=== PATIENT | male | born 1975 | race Caucasian/White ===

== ENCOUNTER 2016-08-18 05:57 | Emergency (ER) | payer OTHER ==
[2016-08-18 06:05] VITALS: BP 152/112; BMI 28.7
--- NOTE | 2016-08-18 06:47 | DR.GENAD ---
HPI - PCP Primary Care Physician: katie - HPI Comment HPI Comment: Patient reports that he was tested positive for the flu and has been prescribed medication but feeling w/o energy body ache - Complaint/Symptoms Chief Complaint Doctors Comments: I tested positive for the flu Chief Complaint:: pt states" i got the flu i tested positive last thursday i don't have any energy" - Nurses notes reviewed Nurses Notes Review: Yes - Source History Provided: Patient - Mode of Arrival Mode of Arrival: Ambulatory - Timing Onset of Chief Complaint: 08/13/16 PMH - PMH Past Medical History: Yes Past Medical History: Hypertension Past Surgical History: No - Family History History of Family Medical Conditions: No - Social History Type of Tobacco Use: Cigarettes Does any household member use tobacco: No Alcohol Use: Occasionally Do you use any recreational Drugs:: No Lives With: Family Lives Where: Home - infectious screening In the last 2 months have you had wt loss of >10#?: NO Have you had fever, night sweats or hemotysis?: No Have you traveled outside the country in the last 6 months?: No Isolation: Standard ROS - Review of Systems Constitutional: Malaise Eyes: No Symptoms Reported ENTM: No Symptoms Reported Respiratoy: No Symptoms Reported Cardiovascular: No Symptoms Reported Gastrointestinal/Abdominal: No Symptoms Reported Genitourinary: No Symptoms Reported Neurological: No Symptoms Reported Musculoskeletal: No Symptoms Reported Integumentary: No Symptoms Reported Hematologic/Lymphatic: No Symptoms Reported Endocrine: No Symptoms Reported Psychiatric: No Symptoms Reported All Other Systems: Reviewed and Negative PE - Vital Signs Vitals: Temperature 98.8 F Pulse Rate 100 Respiratory Rate 18 Blood Pressure 152/112 O2 Sat by Pulse Oximetry 100 - General Limitations: No Limitations General Appearance: Alert, In No Apparent Distress - Head Head Exam: Normal Inspection - Eyes Eye exam: Normal Appearance, PERRL, EOMI - ENT ENT Exam: Other (oropharynx red) External Ear Exam: Normal External Inspection TM/Canal Exam: Bilateral Normal Nose Exam: Normal Nose Exam Mouth Exam: Normal Inspection Throat Exam: Tonsillar Erythema - Neck Neck Exam: Normal Inspection - Chest Chest Inspection: Normal Inspection - Respiratory Respiratory Exam: Normal Lung Sounds Bilat Respiratory Exam: Bilateral Clear to Auscultation - Cardiovascular Cardiovascular Exam: Regular Rate, Normal Rhythm - Abdominal Exam Abdominal Exam: Normal Inspection, Normal Bowel Sounds, Soft - Extremities Extremities Exam: Normal Inspection - Back Back Exam: Normal Inspection - Neurologic Neurological Exam: Alert, Oriented X3 - Psychiatric Psychiatric Exam: Normal Affect, Normal Mood - Skin Skin Exam: Warm, Dry, Intact, Normal Color Course - Reevaluation 1st: Improved - Education/Counseling Education/Counseling: Patient Educated On: Treatment, Diagnosis, Needs for Follow Up - Diagnosis Discharge Problem: Influenza, Body aches, Acute upper respiratory infection Fever Qualifiers: Fever type: unspecified Qualified Code(s): R50.9 - Fever, unspecified Fever Qualifiers: Fever type: unspecified Qualified Code(s): R50.9 - Fever, unspecified - Discharge Plan Condition: Stable Prescriptions: Amoxicillin & Pot Clavulanate [Augmentin 500-125 mg] 1 tab PO Q12H #20 tab - Follow ups/Referrals Follow ups/Referrals: ELISA [facility] [Primary Care Provider] - 3 days - Instructions Instructions: Influenza, Adult, [id number], Upper Respiratory Infection, Adult, [id number] Additional Instructions: Continue supportive measures Increase fluid intake Fever control with tylenol/ motrin
[2016-08-18] MEDS ORDERED: TORADOL 60 MG VIAL IM ONE (06:54)
[2016-08-18] MEDS ORDERED: TORADOL 30 MG VIAL IVP ONE (06:59)
[2016-08-18] MEDS ORDERED: TORADOL 60 MG VIAL ONE (06:59)
== END 2016-08-18 07:40 | disposition home or self-care (01) ==
LOC: ER 05:57
DX: J10.1 Influenza due to other identified influenza virus with other respiratory manifestations (principal); J06.9 Acute upper respiratory infection, unspecified; R52 Pain, unspecified; R50.9 Fever, unspecified
CPT/HCPCS: 96372; 99281; 99282; J1885